=== PATIENT | male | born 1995 | race Caucasian/White ===

== ENCOUNTER 2023-10-26 23:26 | Emergency (ER) | payer MEDICAID ==
[~2023-10-26] VITALS: Ht 170.2 cm; Wt 79.5 kg
[2023-10-27 01:00] VITALS: TEMP 98.3
[2023-10-27] MEDS: IBUPROFEN 600 MG TABLET PO ONE (02:47)
[2023-10-27] MEDS: ACETAMINOPHEN 500 MG TABLET PO ONE (02:48)
[2023-10-27 02:53] VITALS: BP 129/70; PULSE 79; RESP 16
== END 2023-10-27 03:08 | disposition home or self-care (01) ==
LOC: EMS 23:28
DX: S00.83XA Contusion of other part of head, initial encounter (principal); S70.10XA Contusion of unspecified thigh, initial encounter; Z87.891 Personal history of nicotine dependence; Z88.0 Allergy status to penicillin; Y08.89XA Assault by other specified means, initial encounter; Y93.89 Activity, other specified; Y92.89 Other specified places as the place of occurrence of the external cause; Y99.8 Other external cause status
CPT/HCPCS: 70100; 99283